=== PATIENT | male | born 1985 ===

== ENCOUNTER 2018-02-05 11:53 | Emergency (ER) | payer SELFPAY ==
[~2018-02-05] VITALS: Ht 170.2 cm; Wt 74.8 kg
--- NOTE | 2018-02-05 12:20 | NUR ---
DR HDZ AT THE BEDSIDE FOR MSE.
--- NOTE | 2018-02-05 12:37 | NUR ---
Patient discharged to home in stable conditon. Written and verbal after care instructions given. Patient verbalizes understanding of instructions.
== END 2018-02-05 12:38 | disposition home or self-care (01) ==
LOC: ER 11:53
DX: K64.9 Unspecified hemorrhoids (principal)
CPT/HCPCS: A4663